=== PATIENT | female | born 1975 | race Caucasian/White ===

== ENCOUNTER → 2017-05-21 | Outpatient (CLI) | payer BC ==
[2014-08-03 09:28] VITALS: BP 96/57
[~2017-05-21] MED LIST: CLON0.5T3 PO; MULT-246 PO; SERT50TA PO; SUMA50TA3 PO; TOPI50TA38 PO
--- NOTE | 2017-05-21 10:16 | RAD ---
DATE: 05/21/2017 EXAM: MAMMO DEMETRIS SCREENING BILATERAL HISTORY: Routine screening COMPARISON: 08/14/2015 This study was interpreted with the benefit of Computerized Aided Detection (CAD). The breast parenchyma is dense, which could reduce the sensitivity of mammography. Breast parenchyma level density D. FINDINGS: 2-D and 3-D tomosynthesis imaging was performed in CC and MLO projections. No new or enlarging breast densities are seen. There are scattered microcalcifications in both breasts. The distribution suggests a benign etiology. There are tiny radiopacities projected over the high axillary regions, right greater than left, which were not evident on the previous study . These most likely represent deodorant type artifacts. IMPRESSION: 1. No mammographic evidence of malignancy within either breast. 2. Tiny axillary radiopacities, more so on the right, are most likely deodorant artifacts. The patient should be returned to the department for a repeat oblique view on the right following cleansing of the axilla for confirmation. BI-RADS CATEGORY: 0 INCOMPLETE: NEEDS ADDITIONAL IMAGING EVALUATION AND/OR PRIOR MAMMOGRAMS FOR COMPARISON. RECOMMENDED FOLLOW-UP: ADD ADDITIONAL IMAGING PQRS compliance statement: Patient information was entered into a reminder system with a target due date for the next mammogram. Mammography is a sensitive method for finding small breast cancers, but it does not detect them all and is not a substitute for careful clinical examination. A negative mammogram does not negate a clinically suspicious finding and should not result in delay in biopsying a clinically suspicious abnormality. "Our facility is accredited by the [employer] Mammography [employer]."
== END | disposition home or self-care (01) ==
LOC: MAMMO 08:31
PROVIDERS: ATTEND Obstetrics & Gynecology
DX: Z12.31 Encounter for screening mammogram for malignant neoplasm of breast (principal)
CPT/HCPCS: 77063; G0202; 77067

== ENCOUNTER → 2018-07-19 | Outpatient (CLI) | payer BC ==
[2014-08-03 09:28] VITALS: BP 96/57
[~2018-07-19] MED LIST changes: +CLON0.5T11 PO; -CLON0.5T3 PO
--- NOTE | 2018-07-19 14:20 | RAD ---
DATE: July 19, 2018 EXAM: MAMMO DEMETRIS SCREENING BILATERAL HISTORY: Screening study. COMPARISON: 2014 and 2017 This study was interpreted with the benefit of Computerized Aided Detection (CAD). 2-D digital mammographic views of both breasts were performed in the CC and MLO projections. 3-D digital tomosynthesis images of both breasts were performed in the CC and MLO projections and reviewed on a computer workstation. FINDINGS: Breast Density: DENSE The breast parenchyma is dense, which could reduce the sensitivity of mammography. Breast parenchyma level density D.. There is a new round nodule seen within the upper aspect of the left breast 3 cm straight back from the nipple. It is seen on tomographic CC image 44 and tomographic MLO image 39. The right breast is stable. No clustering of pleomorphic microcalcifications are evident on either side. IMPRESSION: New nodule of the left breast. Recommend 2-D focal compression views in the CC and MLO projections and a 90 degrees mediolateral view of the left breast followed by left breast sonography if persists. BI-RADS CATEGORY: 0 INCOMPLETE: NEEDS ADDITIONAL IMAGING EVALUATION AND/OR PRIOR MAMMOGRAMS FOR COMPARISON. RECOMMENDED FOLLOW-UP: ADD ADDITIONAL IMAGING PQRS compliance statement: Patient information was entered into a reminder system with a target due date now for the next imaging study. Mammography is a sensitive method for finding small breast cancers, but it does not detect them all and is not a substitute for careful clinical examination. A negative mammogram does not negate a clinically suspicious finding and should not result in delay in biopsying a clinically suspicious abnormality. "Our facility is accredited by the [employer] Mammography [employer]." The patient's breast density may affect the ability of mammography to detect breast cancer. There are 4 categories of breast density, A, B, C and D. Breast density A means that most of the breast tissue is replaced with adipose tissue and therefore is not dense. Breast density B means that the breast tissue is mildly dense and scattered. Breast density C means that the breast tissue is heterogeneously dense. Breast density D means that the breast tissue is very dense. Breast densities especially C and D may decrease the sensitivity of mammography to detect breast cancer. Therefore, the patient may benefit from 3-D breast mammography (3D breast tomography) as a part of their screening mammogram. Insurance may or may not pay for this additional imaging. The patient's breast density based on today's mammogram is category D.
== END | disposition home or self-care (01) ==
LOC: MAMMO 08:12
PROVIDERS: ATTEND Obstetrics & Gynecology
DX: Z12.31 Encounter for screening mammogram for malignant neoplasm of breast (principal)
CPT/HCPCS: 77063; 77067

== ENCOUNTER → 2018-08-01 | Outpatient (CLI) | payer BC ==
[2014-08-03 09:28] VITALS: BP 96/57
--- NOTE | 2018-08-01 16:17 | RAD ---
DATE: 08/01/2018 EXAM: DIGITAL DIAGNOSTIC LT HISTORY: Callback. COMPARISON: Most recent screening mammogram from 07/19/2018 This study was interpreted with the benefit of Computerized Aided Detection (CAD). FINDINGS: Breast Density: DENSE The breast Parenchyma is dense, which could reduce the sensitivity of mammography. Breast parenchyma level density D.. The skin and nipples are within normal limits. The spot compression CC and MLO views of the left upper breast demonstrates persistent round mass at 12:00 position. Scattered benign-appearing calcifications are seen. IMPRESSION: Persistent round mass in the upper left breast. Please see ultrasound report from the same day. BI-RADS CATEGORY: 3 PROBABLE BENIGN FINDING(S-SHORT INTERVAL FOLLOW-UP SUGGESTED RECOMMENDED FOLLOW-UP: 3M 3 MONTH FOLLOW-UP. Follow-up ultrasound in 3-6 months recommended. PQRS compliance statement: Patient information was entered into a reminder system with a target due date for the next mammogram. Mammography is a sensitive method for finding small breast cancers, but it does not detect them all and is not a substitute for careful clinical examination. A negative mammogram does not negate a clinically suspicious finding and should not result in delay in biopsying a clinically suspicious abnormality. "Our facility is accredited by the [employer] Mammography [employer]."
--- NOTE | 2018-08-01 16:27 | RAD ---
Indication: Callback for abnormality seen on the screening and diagnostic left upper breast mammogram. Technique: Grayscale and color Doppler additional images of the left upper breast Comparison: Diagnostic mammogram from the same day Findings: At 1:00 position approximately 3 cm from the nipple there is an anechoic cyst hypoechoic lesion which is oval in shape shaped with well-circumscribed margins measuring 1.1 x 0.5 x 1.1 cm without internal vascularity and with posterior acoustic enhancement compatible with simple cyst. Other satellite small well-circumscribed hypoechoic masses are seen some demonstrating low-level internal echoes the b2b sales representative such lesion is a 1:00 measuring approximately 0.7 x 0.5 x 0.5 cm likely minimally complicated cysts containing internal debris. No other solid or cystic lesions are seen at any other locations in the upper breast. Impression: Multiple lesions most likely combination of simple and minimally complicated cysts. However at least one follow-up is recommended to document stability. BI-RADS 3: Probably benign. Ultrasound of the left breast in 3-6 months recommended. If these lesions have not changed in size and appearance at that time, patient may continued annual screening.
== END | disposition home or self-care (01) ==
LOC: MAMMO 14:56
PROVIDERS: ATTEND Obstetrics & Gynecology
DX: R92.8 Other abnormal and inconclusive findings on diagnostic imaging of breast (principal)
CPT/HCPCS: 76641; 77065

== ENCOUNTER → 2018-11-11 | Outpatient (CLI) | payer BC ==
[2014-08-03 09:28] VITALS: BP 96/57
--- NOTE | 2018-11-11 16:31 | RAD ---
Examination: BREAST LEFT History: Abnormal ultrasound exam of the left breast on 08/01/2018 Comparison/Correlation: 08/01/2018 left unilateral diagnostic mammographic images and ultrasound exam of the left breast Findings: Ultrasound imaging of the left breast was performed. At the 12:30 region 4 similar from the nipple, there is a 1.5 cm x 1.6 cm x 0.7 cm tall cyst with thin septations. No flow on color Doppler imaging. At the 1:00 region up to 4 cm from the nipple, there is a 0.9 cm x 0.8 cm x 0.3 cm tall cyst which has remained stable since the prior exam. Impression: BI-RADS Category 3-probably benign. Follow-up ultrasound examination of the septated cyst at the 12:30 region is recommended at the time of annual screening. Stability of the previously described cyst is identified.
== END | disposition home or self-care (01) ==
LOC: US 14:59
PROVIDERS: ATTEND Obstetrics & Gynecology
DX: Z12.39 Encounter for other screening for malignant neoplasm of breast (principal)
CPT/HCPCS: 76641

== ENCOUNTER → 2019-06-12 | Outpatient (CLI) | payer BC ==
[2014-08-03 09:28] VITALS: BP 96/57
--- NOTE | 2019-06-13 17:52 | RAD ---
DATE: 06/12/2019 EXAM: MAMMO DEMETRIS MORALESAT, BREAST LEFT HISTORY: Abnormal mammogram COMPARISON: 08/14/2015, 05/21/2017, and 07/19/2018 mammographic exams, left breast ultrasound exams dated 08/01/2018 and 11/11/2018 This study was interpreted with the benefit of Computerized Aided Detection (CAD). Breast Density: DENSE The breast parenchyma is dense, which could reduce the sensitivity of mammography. Breast parenchyma level density D. FINDINGS: Scattered calcifications are present bilaterally and similar to the prior exams. No suspicious new cluster of calcifications. No new mass. No suspicious distortion. Limited left breast ultrasound exam was performed. Septated cyst at the 12:30 region 4 cm from nipple is present measuring up to 1.2 cm in maximum diameter. Additional cystic structure measuring 0.9 cm diameter is present. IMPRESSION: Stable findings. Follow-up left breast ultrasound the time of annual mammography is recommended. BI-RADS CATEGORY: 3 PROBABLY BENIGN FINDING(S)-SHORT INTERVAL FOLLOW-UP SUGGESTED RECOMMENDED FOLLOW-UP: 12M 12 MONTH FOLLOW-UP PQRS compliance statement: Patient information was entered into a reminder system with a target due date in one year for the next mammogram. Mammography is a sensitive method for finding small breast cancers, but it does not detect them all and is not a substitute for careful clinical examination. A negative mammogram does not negate a clinically suspicious finding and should not result in delay in biopsying a clinically suspicious abnormality. "Our facility is accredited by the [employer] Mammography Program."
== END | disposition home or self-care (01) ==
LOC: MAMMO 14:29
PROVIDERS: ATTEND Physician Assistant
DX: N60.02 Solitary cyst of left breast (principal); N64.89 Other specified disorders of breast
CPT/HCPCS: 76641; 77066; G0279; 77062

== ENCOUNTER → 2020-07-16 | Outpatient (CLI) | payer BC ==
[2014-08-03 09:28] VITALS: BP 96/57
[~2020-07-16] MED LIST changes: -CLON0.5T11 PO; +CLON0.5T4 PO
--- NOTE | 2020-07-17 13:35 | RAD ---
DATE: 07/16/2020 8:55 AM EXAM: MAMMO DEMETRIS SCREENING BILATERAL HISTORY: Screening COMPARISON: 06/12/2019 Bilateral CC and MLO views of the breasts were performed. Bilateral breast tomosynthesis was performed in CC and MLO projections. This study was interpreted with the benefit of Computerized Aided Detection (CAD). FINDINGS: Breast Density: DENSE The breast Parenchyma is dense, which could reduce the sensitivity of mammography. Breast parenchyma level density D. Diffuse scattered calcifications bilaterally are redemonstrated. No suspicious masses, microcalcifications or architectural distortion is present to suggest malignancy in either breast. The visualized axillae are unremarkable. IMPRESSION: No mammographic evidence of malignancy. BI-RADS CATEGORY: 2 BENIGN FINDING(S) RECOMMENDED FOLLOW-UP: 12M 12 MONTH FOLLOW-UP Annual screening mammography is recommended, unless clinically indicated sooner based on symptoms or change in physical exam. PQRS compliance statement: Patient information was entered into a reminder system with a target due date for the next mammogram. Mammography is a sensitive method for finding small breast cancers, but it does not detect them all and is not a substitute for careful clinical examination. A negative mammogram does not negate a clinically suspicious finding and should not result in delay in biopsying a clinically suspicious abnormality. "Our facility is accredited by the [employer] Mammography Program."
== END ==
LOC: MAMMO 08:51
PROVIDERS: ATTEND Obstetrics & Gynecology
DX: Z12.31 Encounter for screening mammogram for malignant neoplasm of breast (principal)
CPT/HCPCS: 77063; 77067

== ENCOUNTER → 2021-07-18 | Outpatient (CLI) | payer BC ==
[2014-08-03 09:28] VITALS: BP 96/57
--- NOTE | 2021-07-22 15:43 | RAD ---
Bilateral digital screening 2-D and 3-D (tomosynthesis) mammogram: Reason for examination: Routine screening. Comparison is made to previous study dated Bilateral mammograms in CC and oblique projections were obtained with 2-D imaging and 3-D tomosynthes is imaging and reviewed on the workstation. Interpretation was made with the benefit of CAD. Findings: Breast density: Category D. The breasts are extremely dense which lowers sensitivity of mammography. There are multiple bilateral oval masses. Mass margins are largely obscured by overlying extremely de nse fibroglandular tissue. The largest is seen in the 12:00 position right breast and measures about 2.7 cm. This located about 2 cm from the nipple. There are scattered benign punctate calcifications a nd multiple calcifications showing meniscus signs from milk of calcium within microcysts. There are n o malignant appearing calcifications or architectural distortion. Impression: There are multiple bilateral masses in the breasts are extremely extremely dense immediately lowers s ensitivity of mammography. Bilateral whole breast ultrasound is recommended. ASSESSMENT: BI-RADS 0. Incomplete. Additional imaging is recommended. Recommendations: Bilateral whole breast ultrasound. This patient's information has been entered into a reminder system for the patient to be notified wit h the results of her examination and a target date for the next mammogram. Your patient's mammogram demonstrates that she has dense breast tissue (breast density category C or D), which could hide abnormalities, and if she has other risk factors for breast cancer that have bee n identified, she might benefit from supplemental screening tests that may be suggested by you as her ordering physician. Dense breast tissue, in and of itself, is a relatively common condition. Therefo re, this information is not provided to cause undue concern, but rather to raise your awareness and t o promote discussion with your patient regarding the presence of other risk factors, in addition to d ense breast tissue. Electronically signed by: Jennifer Ambrocio MD (07/22/2021 3:40 PM) [id number]
== END ==
LOC: MAMMO 13:49
PROVIDERS: ATTEND Physician Assistant
DX: Z12.31 Encounter for screening mammogram for malignant neoplasm of breast (principal); N63.20 Unspecified lump in the left breast, unspecified quadrant; N63.10 Unspecified lump in the right breast, unspecified quadrant
CPT/HCPCS: 77063; 77067

== ENCOUNTER → 2021-08-07 | Outpatient (CLI) | payer BC ==
[2014-08-03 09:28] VITALS: BP 96/57
--- NOTE | 2021-08-07 16:15 | RAD ---
EXAM: US BREAST BILAT 08/07/2021 2:48 PM CLINICAL INDICATION: Recalled from screening mammogram for bilateral whole breast ultrasound due to multiple masses. COMPARISON: Screening mammogram 07/18/2021 TECHNIQUE: Grayscale and color Doppler ultrasound images of the bilateral breasts were obtained. FINDINGS: There are numerous bilateral anechoic ovoid circumscribed simple or minimally complicated cysts bilaterally. The largest in each breast were measured. Right breast: 12:00 2 cm from the nipple-2.2 x 2.4 x 1.1 cm-simple cyst 1:00 4 cm the nipple-0.8 x 0.6 x 0.3 cm-simple cyst 7:00 4 cm from nipple-0.8 x 0.6 x 0.5 cm-simple cyst 11:00 3 cm the nipple-1.4 x 1.4 x 0.5 cm hypodense simple cyst Left breast: 12:00 3 cm the nipple-1.7 x 1.4 x 1.0 cm-minimally complicated with an internal septation. No vascula rity. 2:00 6 cm the nipple-1.8 x 1.3 x 0.9 cm-simple cyst 10:00 3 cm the nipple-1.1 x 1.1 x 0.6 cm-simple cyst No suspicious mass. No axillary lymphadenopathy. IMPRESSION: Numerous bilateral benign simple and minimally complicated cysts, the largest measuring 2.3 cm at 12:00 2 cm from the nipple in the right breast. BI-RADS 2-benign. Recommend annual screening mammogram in 12 months. Electronically signed by: Jasmin Lopez MD (08/07/2021 4:12 PM) [id number]
== END ==
LOC: US 14:44
PROVIDERS: ATTEND Physician Assistant
DX: N60.02 Solitary cyst of left breast (principal); N60.01 Solitary cyst of right breast
CPT/HCPCS: 76641-50